=== PATIENT | female | born 1990 ===

== ENCOUNTER 2016-09-30 02:00 | Emergency (ER) | payer MEDICAID ==
[2016-09-30 02:25] VITALS: BP 125/77; PULSE 62; RESP 18; TEMP 99.2; O2SAT 99
[2016-09-30 03:45] LABS: BASO % 0.5 % (0.0-2.0); EOS # 0.2 K/uL (0.0-0.7); EOS % 2.4 % (0.0-4.0); HEMOGLOBIN 12.3 g/dL (12.0-16.0); LYMPH # 2.8 K/uL (1.0-4.3); LYMPH % 34.6 % (20.0-40.0); MEAN CORPUSCULAR HGB CONC 34.1 g/dL (33.0-37.0); MEAN PLATELET VOLUME 9.7 fl (7.2-11.7); MONO # 0.9 K/uL (0.0-0.8); MONO % 10.6 % (0.0-10.0); NEUT # 4.2 K/uL (1.8-7.0); NEUT % 51.9 % (50.0-75.0); NRBC % 0.1 % (0.0-0.0); RBC 3.95 Mil/uL (3.80-5.20); RED CELL DISTRIBUTION WIDTH 12.8 % (11.5-14.5); WHITE BLOOD COUNT 8.1 K/uL (4.8-10.8)
[2016-09-30 03:52] LABS: ALB/GLOB RATIO 1.4 (1.0-2.1); ALBUMIN 4.1 g/dL (3.5-5.0); ALT/SGPT 43 U/L (9-52); AST/SGOT 32 U/L (14-36); BLOOD UREA NITROGEN 18 mg/dl (7-17); CALCIUM 8.8 mg/dL (8.4-10.2); GFR AFRICAN-AMERICAN > 60; GFR NON-AFRICAN AMERICAN > 60
[2016-09-30 04:05] LABS: BARBITURATES, UR NEGATIVE (NEGATIVE); BENZODIAZEPINES, UR NEGATIVE (NEGATIVE); OPIATES, UR NEGATIVE (NEGATIVE); PHENCYCLIDINE, UR NEGATIVE (NEGATIVE)
--- NOTE | 2016-09-30 04:22 | ED PDOC ---
HPI: Chest Pain Time Seen by Provider: 09/30/16 02:24 Chief Complaint (Nursing): Chest Pain Chief Complaint (Provider): Chest Pain History Per: Patient History/Exam Limitations: no limitations Onset/Duration Of Symptoms: Days (x2), Intermittent Episodes Current Symptoms Are (Timing): Still Present Associated Symptoms: Other (Palpitations and headache) Additional Complaint(s): 25 year old female presents to ED with complaints of intermittent chest pain x2 days and has no past medical history. Patient notes onset when she was at rest and associated symptoms of palpitations and a headache, both of which have resolved. Patient states that chest pain recurred today, prompting ED visit. Notes that on arrival, chest pain has resolved but still has a mild headache. Confirms taking [employer] and notes that she recently flew from the [place] x3 weeks ago. Patient states she formerly took Depo-Provera injections , but ceased d1xrureu ago. PCP: JOMAR - Risk Factors PE Risk Factors: Neg: Previous DVT, Previous PE, CHF TAD Risk Factors: Neg: Hypertension Past Medical History Reviewed: Historical Data, Nursing Documentation, Vital Signs Vital Signs: Last Vital Signs Temp 99.2 F 09/30/16 02:23 Pulse 62 09/30/16 02:23 Resp 18 09/30/16 02:23 BP 125/77 09/30/16 02:23 Pulse Ox 99 09/30/16 02:23 - Medical History PMH: No Chronic Diseases - Surgical History Surgical History: No Surg Hx - Family History Family History: States: No Known Family Hx Denies: [place], CAD - Social History Current smoker - smoking cessation education provided: No Ex-Smoker (has not smoked in the last 12 months): No Alcohol: None Drugs: Denies - Immunization History Hx Tetanus Toxoid Vaccination: No Hx Influenza Vaccination: No Hx Pneumococcal Vaccination: No - Home Medications Home Medications: Ambulatory Orders Medication Instructions Recorded Depo-Provera 09/27/14 - Allergies Allergies/Adverse Reactions: Allergies Allergy/AdvReac Type Severity Reaction Status Date / Time apple Allergy Verified 01/09/16 20:30 DONAVAN Risk Score for UA/NSTEMI - DONAVAN Risk Score Age > 64: NO 3 or more CAD Risk Factors: NO Known CAD (Stenosis greater than 50%): NO Aspirin use in past 7 days: YES DONAVAN Score: 1 Risk %: 5% Curb-65 Severity Score - CURB-65 Severity Score Confusion: No Respiratory Rate greater than/equal to 30: No Systolic BP <90 or Diastolic BP less than/equal 60mmHg: No Age >64: No Curb-65 Score: 0 Percentage 30-day mortality: 0.6% Wells Criteria for PE - Wells Criteria for Pulmonary Embolism Clinical Signs and Symptoms of DVT: No P.E is #1 Diagnosis, or Equally Likely: No Heart Rate >100: No Immobilization at least 3 days;Surgery previous 4 weeks: No Previous, objectively diagnosed PE or DVT: No Hemoptysis: No Malignancy w/treatment within 6 months, or palliative: No Total Score: 0 Review of Systems ROS Statement: Except As Marked, All Systems Reviewed And Found Negative Cardiovascular: Positive for: Chest Pain, Palpitations Neurological: Positive for: Headache Physical Exam - Reviewed Nursing Documentation Reviewed: Yes Vital Signs Reviewed: Yes - Physical Exam Appears: Positive for: Non-toxic, No Acute Distress Head Exam: Positive for: ATRAUMATIC Skin: Positive for: Normal Color, Warm, Dry Eye Exam: Positive for: Normal appearance, EOMI, PERRL ENT: Positive for: Normal ENT Inspection Neck: Positive for: Normal, Painless ROM, Supple Cardiovascular/Chest: Positive for: Regular Rate, Rhythm. Negative for: Murmur Respiratory: Positive for: Normal Breath Sounds. Negative for: Respiratory Distress Gastrointestinal/Abdominal: Positive for: Normal Exam, Soft. Negative for: Tenderness Back: Positive for: Normal Inspection Extremity: Positive for: Normal ROM. Negative for: Deformity Neurologic/Psych: Positive for: Alert, Oriented. Negative for: Motor/Sensory Deficits - Laboratory Results Result Diagrams: 09/30/16 03:41 09/30/16 03:41 - ECG O2 Sat by Pulse Oximetry: 99 (RA) Pulse Ox Interpretation: Normal - Radiology X-Ray: Interpreted by Me, Viewed By Me X-Ray Interpretation: No Acute Disease Medical Decision Making Medical Decision Makin Initial impression: chest pain Initial plan: * EKG * Labs * UDrug screen * Trop I * D Dimer * CXR [id number] Labs reviewed: no clinically significant abnormalities CXR: no acute disease Patient is medically stable and ready for discharge. Counseling has been provided and pt is in agreement. Return if symptoms persist or acutely worsen. Dx: atypical chest pain Patient will follow up with PCP within 2 days. Scribe Attestation: Documented by Treasure Zurita acting as a scribe for Héctor Jeffries MD. Scribe Attestation: All medical record entries made by the Scribe were at my direction and personally dictated by me. I have reviewed the chart and agree that the record accurately reflects my personal performance of the history, physical exam, medical decision making, and the department course for this patient. I have also personally directed, reviewed, and agree with the discharge instructions and disposition. Disposition - Clinical Impression Clinical Impression: Non-cardiac chest pain - Patient ED Disposition Is Patient to be Admitted: No Counseled Patient/Family Regarding: Diagnosis - Disposition Referrals: Dago Albrecht MD [Primary Care Provider] - Disposition: Routine/Home Disposition Time: 04:07 Condition: STABLE Instructions: Noncardiac Chest Pain (ED) - POA Present On Arrival: None
--- NOTE | 2016-09-30 14:16 | RAD ---
HISTORY: Chest pain. COMPARISON: 05/22/2016. FINDINGS: LUNGS: No active pulmonary disease. PLEURA: No significant pleural effusion identified, no pneumothorax apparent. CARDIOVASCULAR: Normal. OSSEOUS STRUCTURES: No significant abnormalities. VISUALIZED UPPER ABDOMEN: Normal. OTHER FINDINGS: None. IMPRESSION: No active disease. No significant interval change compared to the prior examination(s). No preliminary report provided by emergency department personnel.
--- NOTE | 2016-09-30 19:36 | CARD ---
APPROVED REPORT EKG Measurement Heart [id number] WI [id number] <Conclusion> Normal sinus rhythm with sinus arrhythmia Normal ECG
== END 2016-09-30 04:31 | disposition home or self-care (01) ==
LOC: H.ER 02:00
DX: R07.89 Other chest pain (principal); Z87.891 Personal history of nicotine dependence

== ENCOUNTER 2017-06-27 12:18 | Emergency (ER) | payer MEDICAID ==
[2017-06-27 12:34] VITALS: RESP 16; O2SAT 100
[2017-06-27] MEDS ORDERED: Morphine 4 MG/ML VIAL IVP ONE (13:01)
[2017-06-27] MEDS ORDERED: Sodium Chloride 0.9% 1,000 ML IV STA (13:06)
--- NOTE | 2017-06-27 13:06 | ED PDOC ---
HPI: Abdomen Time Seen by Provider: 06/27/17 13:05 Chief Complaint (Nursing): Abdominal Pain Chief Complaint (Provider): abd pain History Per: Patient (26 y/o female here with rlq abd pain x 4 days noted to start at night. Feels pain came on sudden onset. Denies any N/V/fevers/ chills. ) Past Medical History Reviewed: Historical Data, Nursing Documentation, Vital Signs Vital Signs: Last Vital Signs Temp 99.2 F 06/27/17 12:31 Pulse 83 06/27/17 13:42 Resp 16 06/27/17 13:42 BP 102/63 06/27/17 12:31 Pulse Ox 100 06/27/17 13:42 - Family History Family History: States: Unknown Family Hx Denies: [place], CAD - Immunization History Hx Tetanus Toxoid Vaccination: No Hx Influenza Vaccination: No Hx Pneumococcal Vaccination: No - Home Medications Home Medications: Ambulatory Orders Medication Instructions Recorded Depo-Provera 09/27/14 Miconazole [Monistat 3] 200 mg VAG DAILY #3 sup 06/27/17 - Allergies Allergies/Adverse Reactions: Allergies Allergy/AdvReac Type Severity Reaction Status Date / Time apple Allergy ITCHING Verified 06/27/17 12:31 Review of Systems ROS Statement: Except As Marked, All Systems Reviewed And Found Negative Physical Exam - Reviewed Nursing Documentation Reviewed: Yes Vital Signs Reviewed: Yes - Physical Exam Appears: Positive for: Well, Non-toxic, No Acute Distress Head Exam: Positive for: ATRAUMATIC, NORMAL INSPECTION, NORMOCEPHALIC Skin: Positive for: Normal Color, Warm, DRY Eye Exam: Positive for: EOMI, Normal appearance, PERRL ENT: Positive for: Normal ENT Inspection Neck: Positive for: Normal, Painless ROM Cardiovascular/Chest: Positive for: Regular Rate, Rhythm Respiratory: Positive for: CNT, Normal Breath Sounds Gastrointestinal/Abdominal: Positive for: Normal Exam, Soft, Tenderness (rlq tenderness) Pelvic Exam: Positive for: Discharge (MILD VAGINAL DISCHARGE NOTED WHITE THINK) Back: Positive for: Normal Inspection Extremity: Positive for: Normal ROM Neurologic/Psych: Positive for: Alert, Oriented - Laboratory Results Result Diagrams: 06/27/17 13:17 06/27/17 13:17 Urine POC: Negative Urine dip results: Negative for: Leukocyte Esterase, Blood, Nitrate, Ketones, Glucose, Bilirubin, Protein - ECG O2 Sat by Pulse Oximetry: 100 - Progress ED Course And Treament: CT ABD/PELVIS: NO ACUTE FINDINGS US PELVIS: LEFT OVARIAN CYST NOTED; FLOW NOTED BILATERALLY RE-EXAMINATED 17:26 NONTENDER ABDOMEN. NONTENDER ADNEXA GC SENT ADVISED F/U WITH [facility] FOR FURTHER EVALUATION Disposition - Clinical Impression Clinical Impression: Abdominal pain in female, Janiya vaginitis, Ovarian cyst, left - Patient ED Disposition Is Patient to be Admitted: No - Disposition Referrals: [facility] [Outside] Disposition: Routine/Home Disposition Time: 17:24 Condition: FAIR Prescriptions: Miconazole [Monistat 3] 200 mg VAG DAILY #3 sup Instructions: Ovarian Cyst (DC), Vulvovaginal Yeast Infection Forms: [employer] ([place])
[2017-06-27 13:24] LABS: BASO # 0.1 K/uL (0.0-0.2); BASO % 1.4 % (0.0-2.0); EOS # 0.1 K/uL (0.0-0.7); EOS % 1.8 % (0.0-4.0); HEMOGLOBIN 12.3 g/dL (12.0-16.0); LYMPH # 1.6 K/uL (1.0-4.3); LYMPH % 23.4 % (20.0-40.0); MEAN CELL VOLUME 92.8 fl (81.0-99.0); MEAN CORPUSCULAR HGB CONC 33.4 g/dL (33.0-37.0); MEAN PLATELET VOLUME 9.7 fl (7.2-11.7); MONO # 0.7 K/uL (0.0-0.8); MONO % 10.3 % (0.0-10.0); NEUT # 4.5 K/uL (1.8-7.0); NEUT % 63.1 % (50.0-75.0); RBC 3.98 Mil/uL (3.80-5.20); RED CELL DISTRIBUTION WIDTH 12.9 % (11.5-14.5); WHITE BLOOD COUNT 7.1 K/uL (4.8-10.8)
[2017-06-27 13:42] LABS: ALB/GLOB RATIO 1.2 (1.0-2.1); ALBUMIN 3.9 g/dL (3.5-5.0); ALT/SGPT 42 U/L (9-52); AST/SGOT 29 U/L (14-36); BLOOD UREA NITROGEN 14 mg/dl (7-17); CALCIUM 8.7 mg/dL (8.4-10.2); GFR AFRICAN-AMERICAN > 60; GFR NON-AFRICAN AMERICAN > 60; LIPASE 139 U/L (23-300)
[2017-06-27] MEDS ORDERED: Iohexol 300 100 ML IJ ONE (15:07)
--- NOTE | 2017-06-27 15:45 | CT ---
PROCEDURE: CT Abdomen and Pelvis with contrast HISTORY: r/o appendicitis COMPARISON: None. TECHNIQUE: Contrast dose: Radiation dose: Total exam DLP = mGy-cm. This CT exam was performed using one or more of the following dose reduction techniques: Automated exposure control, adjustment of the mA and/or kV according to patient size, and/or use of iterative reconstruction technique. FINDINGS: LOWER THORAX: Unremarkable. LIVER: Unremarkable. No gross lesion or ductal dilatation. GALLBLADDER AND BILE DUCTS: Unremarkable. PANCREAS: Unremarkable. No gross lesion or ductal dilatation. SPLEEN: Unremarkable. ADRENALS: Unremarkable. No mass. KIDNEYS AND URETERS: Unremarkable. No hydronephrosis. No solid mass. VASCULATURE: Unremarkable. No aortic aneurysm. BOWEL: Unremarkable. No obstruction. No gross mural thickening. APPENDIX: Normal appendix. PERITONEUM: Unremarkable. No free fluid. No free air. LYMPH NODES: Unremarkable. No enlarged lymph nodes. BLADDER: Unremarkable. REPRODUCTIVE: Unremarkable. BONES: No acute fracture. OTHER FINDINGS: None. IMPRESSION: Unremarkable contrast enhanced CT of the abdomen and pelvis.
--- NOTE | 2017-06-27 17:33 | US ---
PROCEDURE: HISTORY: rlq pain COMPARISON: TECHNIQUE: FINDINGS: Use measures 7.3 x 4.4 centimeters. The endometrium measures 4 millimeters. The right ovary is normal. There is a left ovarian cyst measuring 1.7 centimeters. There is no from the pelvis. IMPRESSION: 1.7 centimeter left ovarian cyst
[2017-06-27 17:56] VITALS: BP 116/68; PULSE 84; TEMP 98.2
== END 2017-06-27 17:50 | disposition home or self-care (01) ==
LOC: H.ER 12:18
DX: B37.3 Candidiasis of vulva and vagina (principal); N83.202 Unspecified ovarian cyst, left side
CPT/HCPCS: 74177; 76830; 80053; 81025; 83690; 85025; 85610; 85730; 86850; 86900; 87491; 87591; 96361; 96374; 99284; J2270; J7040; Q9967

== ENCOUNTER 2017-12-01 09:31 | Emergency (ER) | payer MEDICAID ==
[2017-12-01 09:38] VITALS: O2SAT 99
[2017-12-01] MEDS ORDERED: Sodium Chloride 0.9% 1,000 ML IV STA (09:54)
--- NOTE | 2017-12-01 10:06 | ED PDOC ---
HPI: Female Pain Time Seen by Provider: 12/01/17 09:38 Chief Complaint (Provider): Vaginal bleeding History Per: Patient History/Exam Limitations: no limitations Onset/Duration Of Symptoms: Days (Thursday) Additional Complaint(s): Pt. with vaginal bleeding. Started Thursday. Constant since. Finished her period earlier in the month. Has pelvic cramping pain. No nausea, vomit, diarrhea, dysuria. No weakness. No back pain. No chest pain or dyspnea. Denies being preg. Past Medical History Reviewed: Nursing Documentation, Vital Signs Vital Signs: Last Vital Signs Temp 98.6 F 12/01/17 09:37 Pulse 69 12/01/17 09:37 Resp 17 12/01/17 09:37 BP 115/72 12/01/17 09:37 Pulse Ox 99 12/01/17 09:37 - Medical History PMH: No Chronic Diseases - Surgical History Surgical History: No Surg Hx - Family History Family History: States: Unknown Family Hx Denies: [place], CAD - Immunization History Hx Tetanus Toxoid Vaccination: No Hx Influenza Vaccination: No Hx Pneumococcal Vaccination: No - Home Medications Home Medications: Ambulatory Orders Medication Instructions Recorded Depo-Provera 09/27/14 Miconazole [Monistat 3] 200 mg VAG DAILY #3 sup 06/27/17 Ibuprofen [Motrin] 600 mg PO TID 7 Days tab 12/01/17 - Allergies Allergies/Adverse Reactions: Allergies Allergy/AdvReac Type Severity Reaction Status Date / Time apple Allergy ITCHING Verified 12/01/17 10:21 Review of Systems ROS Statement: Except As Marked, All Systems Reviewed And Found Negative Genitourinary Female: Positive for: Vaginal Bleeding, Pelvic Pain Physical Exam - Reviewed Nursing Documentation Reviewed: Yes Vital Signs Reviewed: Yes - Physical Exam Appears: Positive for: Non-toxic, No Acute Distress Head Exam: Positive for: ATRAUMATIC, NORMAL INSPECTION, NORMOCEPHALIC Skin: Positive for: Normal Color, Warm, DRY Eye Exam: Positive for: EOMI, Normal appearance, PERRL ENT: Positive for: Normal ENT Inspection Neck: Positive for: Normal, Painless ROM Cardiovascular/Chest: Positive for: Regular Rate, Rhythm Respiratory: Positive for: CNT, Normal Breath Sounds Gastrointestinal/Abdominal: Positive for: Soft, Tenderness (across lower pelvic) Pelvic Exam: Positive for: External Exam Normal, Blood (trace dark blood from cervix noted; no clots.). Negative for: Speculum Exam Normal, Tender W/ Cervical Motion Back: Positive for: Normal Inspection. Negative for: L CVA Tenderness, R CVA Tenderness Extremity: Positive for: Normal ROM. Negative for: Tenderness Neurologic/Psych: Positive for: Alert, Oriented - Laboratory Results Result Diagrams: 12/01/17 10:20 12/01/17 10:20 Interpretation Of Abn Labs: no acute Urine dip results: Negative for: Leukocyte Esterase, Nitrate - ECG O2 Sat by Pulse Oximetry: 99 Pulse Ox Interpretation: Normal - CT Scan/US US Other Rad Studies (CT/US): Read By Radiologist - Progress ED Course And Treament: 1407: Stable. AAOx3. Feels better after morphine. Fu with pcp. Likely irregular period. Fu with clinic. Disposition - Clinical Impression Clinical Impression: Vaginal bleeding - Patient ED Disposition Is Patient to be Admitted: No Counseled Patient/Family Regarding: Studies Performed, Diagnosis - Disposition [facility] - 12/02/17 Disposition: Routine/Home Disposition Time: 14:09 Condition: STABLE Additional Instructions: Return if not better in 3 days. Prescriptions: Ibuprofen [Motrin] 600 mg PO TID 7 Days tab Instructions: Heavy Periods Forms: [employer] (Czech), [facility] ED School/Work Excuse
[2017-12-01 10:27] LABS: BASO % 0.4 % (0.0-2.0); EOS # 0.1 K/uL (0.0-0.7); EOS % 2.4 % (0.0-4.0); HEMOGLOBIN 13.4 g/dL (12.0-16.0); LYMPH % 34.3 % (20.0-40.0); MEAN CELL VOLUME 91.9 fl (81.0-99.0); MEAN CORPUSCULAR HEMOGLOBIN 31.2 pg (27.0-31.0); MEAN PLATELET VOLUME 9.5 fl (7.2-11.7); MONO # 0.5 K/uL (0.0-0.8); MONO % 8.1 % (0.0-10.0); NEUT # 3.2 K/uL (1.8-7.0); NEUT % 54.8 % (50.0-75.0); NRBC % 0.1 % (0.0-0.0); RBC 4.28 Mil/uL (3.80-5.20); WHITE BLOOD COUNT 5.8 K/uL (4.8-10.8)
[2017-12-01 10:32] LABS: PROTHROMBIN TIME 11.5 Seconds (9.8-13.1)
[2017-12-01 10:35] LABS: PARTIAL THROMBOPLASTIN TIME 36.2 Seconds (25.6-37.1)
[2017-12-01 10:46] LABS: ALB/GLOB RATIO 1.2 (1.0-2.1); ALBUMIN 4.3 g/dL (3.5-5.0); ALT/SGPT 23 U/L (9-52); AST/SGOT 33 U/L (14-36); BLOOD UREA NITROGEN 10 mg/dl (7-17); CALCIUM 9.3 mg/dL (8.4-10.2); GFR NON-AFRICAN AMERICAN > 60
--- NOTE | 2017-12-01 12:24 | US ---
Date of service: 12/01/2017 HISTORY: vaginal bleeding COMPARISON: None available. TECHNIQUE: Transvaginal pelvic ultrasound FINDINGS: UTERUS: Measures 7.2 x 3.7 x 3.0 cm. Anteverted. ENDOMETRIUM: Measures 3 mm in diameter. CERVIX: No cervical abnormality identified. RIGHT OVARY: Measures 2.7 x 2.8 x 1.6 cm. Blood flow is demonstrated. LEFT OVARY: Measures 3.6 x 2.4 x 1.2 cm. Blood flow is demonstrated. FREE FLUID: No significant free fluid noted. OTHER FINDINGS: None. IMPRESSION: Unremarkable pelvic ultrasound as above.
[2017-12-01] MEDS ORDERED: Morphine 4 MG/ML VIAL IV ONE (13:22)
[2017-12-01] MEDS ORDERED: Morphine 4 MG/ML VIAL ONE (13:33)
[2017-12-01 14:49] VITALS: BP 109/63; PULSE 68; RESP 16; TEMP 98.2
== END 2017-12-01 14:44 | disposition home or self-care (01) ==
LOC: H.ER 09:31
DX: N93.9 Abnormal uterine and vaginal bleeding, unspecified (principal)
CPT/HCPCS: 76830; 80053; 81025; 84702; 85025; 85610; 85730; 96374; 99283; J1885; J2270; J7030